=== PATIENT | female | born 1980 | race Caucasian/White ===

== ENCOUNTER 2019-10-26 09:26 | Inpatient (IN) | payer OTHER ==
[~2019-10-26] VITALS: Ht 162.6 cm; Wt 85.2 kg
[2019-10-26] MEDS ORDERED: TRAM50TA4 PO (09:45)
[2019-10-26] MEDS ORDERED: IBUP-2070 PO (09:45)
[2019-10-26 10:07] LABS: BASOPHILS % (AUTO) 0.6 % (0.0-2.0); EOSINOPHILS % (AUTO) 2.4 % (1.0-6.0); HEMATOCRIT 37.4 % (36-46); HEMOGLOBIN 12.4 g/dL (12.0-16.0); LYMPHOCYTES # (AUTO) 2.9 K/uL (1.0-4.8); LYMPHOCYTES % (AUTO) 30.5 % (22.0-44.0); MEAN CORPUSCULAR HEMOGLOBIN 27.8 pg (26.0-34.0); MEAN CORPUSCULAR HGB CONC 33.3 G/dL (31.0-37.0); MEAN CORPUSCULAR VOLUME 84 fL (80-100); MONOCYTES # (AUTO) 0.5 K/uL (0.1-1.0); MONOCYTES % (AUTO) 4.8 % (2.0-9.0); NEUTROPHILS # (AUTO) 5.9 K/uL (1.8-7.7); NEUTROPHILS % (AUTO) 61.7 % (40.0-70.0); PLATELET COUNT (AUTO) 255 K/uL (150-450); RED BLOOD CELL COUNT(AUTO) 4.47 MIL/uL (4.00-5.20); RED CELL DISTRIBUTION WIDTH 14.5 % (11.5-14.5)
[2019-10-26 10:13] LABS: ANION GAP 5 mmol/L (8-16); CALCIUM, TOTAL 9.3 mg/dL (8.8-10.5); CARBON DIOXIDE 32 mmol/L (22-29); CHLORIDE 104 mmol/L (98-107); CREATININE 0.64 mg/dL (0.60-1.30); GLOMERULAR FILTR. RATE CALC > 60 mL/min (>60); GLUCOSE,RANDOM 97 mg/dL (70-110); POTASSIUM 3.8 mmol/L (3.5-5.1); SODIUM SERUM 141 mmol/L (136-145); UREA NITROGEN, BLOOD 10 mg/dL (7-18)
[2019-10-26 10:25] LABS: ALANINE AMINOTRANSFERASE 23 U/L (12-78); ALBUMIN 3.6 g/dL (3.4-5.0); ALKALINE PHOSPHATASE 83 U/L (46-116); ASPARTATE AMINOTRANSFERASE 13 U/L (15-37); BILIRUBIN,TOTAL 0.4 mg/dL (0.1-1.0); HCG,QUANTITATIVE < 1 mIU/mL (0-6); TOTAL PROTEIN, SERUM 7.4 g/dL (6.4-8.2)
[2019-10-26 10:31] VITALS: BP 124/71
[2019-10-26] MEDS ORDERED: INFLUENZA VIRUS VACCINE QVS 2019-20 (3YR+)/PF 60 MCG/0.5 ML SYRINGE IM ONE (14:15)
[2019-10-26 15:20] VITALS: BP 135/89
[2019-10-26] MEDS: IBUPROFEN 600 MG TABLET PO PRN (16:43)
[2019-10-26] MEDS: FLUoxetine HCL 20 MG CAPSULE PO SCH (16:57)
[2019-10-26 17:12] LABS: AMPHET/METH SCREEN,URINE POSITIVE (NEGATIVE); BARBITURATE SCREEN, URINE NEGATIVE (NEGATIVE); BENZODIAZEPINES SCREEN,URINE NEGATIVE (NEGATIVE); CANNABINOID SCREEN,URINE POSITIVE (NEGATIVE); COCAINE SCREEN,URINE NEGATIVE (NEGATIVE); METHADONE SCREEN, URINE NEGATIVE (NEGATIVE); OPIATE SCREEN,URINE NEGATIVE (NEGATIVE)
[2019-10-26 17:14] LABS: PHENCYCLIDINE SCREEN,URINE NEGATIVE (NEGATIVE)
[2019-10-26 22:48] VITALS: BP 123/75
[2019-10-27 00:47] VITALS: BP 132/82
[2019-10-27 04:00] VITALS: BP 119/68
[2019-10-27 07:31] VITALS: BP 121/86
[2019-10-27] MEDS: FLUoxetine HCL 20 MG CAPSULE PO SCH (08:32)
[2019-10-27] MEDS ORDERED: SODIUM CHLORIDE 0.45% 1,000 ML IV SCH (12:24)
[2019-10-27] MEDS ORDERED: MAGNESIUM HYDROXIDE SUSPENSION 30 ML UDCUP PO PRN (12:30)
[2019-10-27] MEDS ORDERED: PROMETHAZINE HCL 25 MG TABLET PO PRN (12:30)
[2019-10-27] MEDS ORDERED: BACLOFEN 10 MG TABLET PO PRN (12:30)
[2019-10-27] MEDS ORDERED: HydrOXYzine PAMOATE 50 MG CAPSULE PO PRN (12:30)
[2019-10-27] MEDS ORDERED: IBUPROFEN 600 MG TABLET PO PRN (12:30)
[2019-10-27] MEDS ORDERED: BISACODYL 10 MG RECTAL RECTAL SUPPOSITORY PR PRN (12:30)
[2019-10-27] MEDS ORDERED: IPRATROPIUM BROMIDE 0.5 MG/2.5 ML NEB SOLUTION NEB PRN (12:30)
[2019-10-27] MEDS ORDERED: LOPERAMIDE HCL 2 MG/15 ML SUSPENSION UDCUP PO PRN (12:30)
[2019-10-27] MEDS ORDERED: ACETAMINOPHEN 325 MG TABLET PO PRN ×2 (12:30)
[2019-10-27] MEDS ORDERED: DICYCLOMINE HCL 10 MG CAPSULE PO PRN (12:30)
[2019-10-27] MEDS ORDERED: ONDANSETRON HCL 4 MG/2 ML VIAL IVP PRN (12:30)
[2019-10-27] MEDS ORDERED: MAG HYDROX/AL HYDROX/SIMETH ES 30 ML SUSPENSION UDCUP PO PRN (12:30)
[2019-10-27] MEDS ORDERED: ALBUTEROL SULFATE 2.5 MG/0.5 ML NEB SOLUTION NEB PRN (12:30)
[2019-10-27] MEDS ORDERED: CloNIDine HCL 0.1 MG TABLET PO PRN (12:30)
[2019-10-27 12:50] VITALS: BP 121/76
[2019-10-27] MEDS: HEPARIN SODIUM,PORCINE 5,000 UNITS/ML VIAL SQ SCH ×2 (15:22→23:26)
[2019-10-27 15:34] VITALS: BP 137/74
[2019-10-27] MEDS: IBUPROFEN 600 MG TABLET PO PRN (18:45)
[2019-10-27] MEDS: ZOLPIDEM TARTRATE 5 MG TABLET PO PRN (20:03)
[2019-10-27] MEDS: DOCUSATE SODIUM 100 MG CAPSULE PO SCH (20:03)
[2019-10-27 20:06] VITALS: BP 132/78
[2019-10-27] MEDS: LORazepam 1 MG TABLET PO PRN (23:27)
[2019-10-28] MEDS: TraZODone HCL 50 MG TABLET PO PRN ×3 (01:21→23:36)
[2019-10-28 06:26] VITALS: BP 132/76
[2019-10-28 07:46] VITALS: BP 110/61
[2019-10-28] MEDS: DOCUSATE SODIUM 100 MG CAPSULE PO SCH ×2 (08:34→20:10)
[2019-10-28] MEDS: FLUoxetine HCL 20 MG CAPSULE PO SCH (08:34)
[2019-10-28] MEDS: HEPARIN SODIUM,PORCINE 5,000 UNITS/ML VIAL SQ SCH ×3 (08:35→23:37)
[2019-10-28] MEDS: IBUPROFEN 600 MG TABLET PO PRN ×2 (08:41→18:22)
[2019-10-28] MEDS ORDERED: FLUO-191 PO (09:44)
[2019-10-28] MEDS: LORazepam 1 MG TABLET PO PRN ×2 (10:17→16:41)
[2019-10-28 13:28] VITALS: BP 110/61
[2019-10-28 15:21] VITALS: BP 117/5
[2019-10-28 20:30] VITALS: BP 124/72
[2019-10-28] MEDS: ZOLPIDEM TARTRATE 5 MG TABLET PO PRN (20:55)
[2019-10-29] MEDS: DOCUSATE SODIUM 100 MG CAPSULE PO SCH ×2 (09:00→19:47)
[2019-10-29 09:19] VITALS: BP 100/44
[2019-10-29] MEDS: HEPARIN SODIUM,PORCINE 5,000 UNITS/ML VIAL SQ SCH ×3 (09:57→23:25)
[2019-10-29] MEDS: FLUoxetine HCL 20 MG CAPSULE PO SCH (09:58)
[2019-10-29] MEDS: IBUPROFEN 600 MG TABLET PO PRN (09:58)
[2019-10-29] MEDS ORDERED: NICOTINE 14 MG/24 HOUR PATCH TD SCH (13:00)
[2019-10-29 14:57] VITALS: BP 135/73
[2019-10-29] MEDS: ZOLPIDEM TARTRATE 5 MG TABLET PO PRN (19:25)
[2019-10-29] MEDS: TraZODone HCL 50 MG TABLET PO PRN (19:26)
[2019-10-29 19:27] VITALS: BP 135/62
[2019-10-29] MEDS: LORazepam 1 MG TABLET PO PRN (21:53)
[2019-10-30] MEDS: IBUPROFEN 600 MG TABLET PO PRN (06:08)
== END 2019-10-30 06:25 | DRG 885 ==
LOC: EMS 09:27 → 6S 09:51
PROVIDERS: ADMIT Hospitalist; ATTEND Hospitalist
DX: F33.2 Major depressive disorder, recurrent severe without psychotic features (principal); F11.23 Opioid dependence with withdrawal; F41.9 Anxiety disorder, unspecified; G89.29 Other chronic pain; M54.9 Dorsalgia, unspecified; F17.210 Nicotine dependence, cigarettes, uncomplicated; F12.90 Cannabis use, unspecified, uncomplicated; Z88.1 Allergy status to other antibiotic agents
CPT/HCPCS: J1644

== ENCOUNTER 2021-11-28 00:55 | Inpatient (IN) | payer OTHER ==
[~2021-11-28] VITALS: Ht 167.6 cm; Wt 91.5 kg
[~2021-11-28 00:55] MED LIST: FLUO-191 PO
[2021-11-28] MEDS ORDERED: VANCOMYCIN HCL 1 GM/D5% WATER 200 ML IV ONE (02:15)
[2021-11-28 02:24] LABS: BASOPHILS % (AUTO) 0.6 % (0.0-2.0); EOSINOPHILS % (AUTO) 3.1 % (1.0-6.0); HEMATOCRIT 30.8 % (36-46); HEMOGLOBIN 9.9 g/dL (12.0-16.0); LYMPHOCYTES # (AUTO) 3.4 K/uL (1.0-4.8); LYMPHOCYTES % (AUTO) 25.4 % (22.0-44.0); MEAN CORPUSCULAR HEMOGLOBIN 26.3 pg (26.0-34.0); MEAN CORPUSCULAR HGB CONC 32.2 G/dL (31.0-37.0); MEAN CORPUSCULAR VOLUME 82 fL (80-100); MONOCYTES # (AUTO) 0.7 K/uL (0.1-1.0); MONOCYTES % (AUTO) 5.3 % (2.0-9.0); NEUTROPHILS # (AUTO) 8.7 K/uL (1.8-7.7); NEUTROPHILS % (AUTO) 65.6 % (40.0-70.0); PLATELET COUNT (AUTO) 411 K/uL (150-450); RED BLOOD CELL COUNT(AUTO) 3.77 MIL/uL (4.00-5.20)
[2021-11-28 02:33] LABS: ANION GAP 6 mmol/L (8-16); CARBON DIOXIDE 32 mmol/L (22-29); CHLORIDE 103 mmol/L (98-107); CREATININE 0.74 mg/dL (0.60-1.30); GLOMERULAR FILTR. RATE CALC > 60 mL/min (>60); GLUCOSE,RANDOM 99 mg/dL (70-110); POTASSIUM 3.5 mmol/L (3.5-5.1); SODIUM SERUM 141 mmol/L (136-145); UREA NITROGEN, BLOOD 8 mg/dL (7-18)
[2021-11-28] MEDS ORDERED: ACETAMINOPHEN 325 MG TABLET PO PRN (02:45)
[2021-11-28] MEDS ORDERED: ONDANSETRON HCL 4 MG/2 ML VIAL IVP PRN ×2 (02:45→03:15)
[2021-11-28 02:51] LABS: COVID AG,FIA SOURCE NASOPHARYNGEAL
[2021-11-28] MEDS: RINGERS SOLUTION,LACTATED 1,000 ML IV SCH ×2 (03:48→16:54)
[2021-11-28 05:39] VITALS: BP 105/51
[2021-11-28] MEDS: ACETAMINOPHEN 325 MG TABLET PO PRN (05:56)
[2021-11-28] MEDS: HEPARIN SODIUM,PORCINE 5,000 UNITS/ML VIAL SQ SCH ×2 (08:33→16:53)
[2021-11-28] MEDS: VANCOMYCIN HCL 1 GM/D5% WATER 200 ML IV SCH ×2 (08:33→16:53)
[2021-11-28 09:07] VITALS: BP 107/53
[2021-11-28] MEDS: CefTRIAXone 1 GM/DEXTROSE 50 ML IV SCH (11:58)
[2021-11-28] MEDS ORDERED: LIDOCAINE/PF 2% 5 ML VIAL IM ONE (12:00)
[2021-11-28] MEDS ORDERED: PROPOFOL 1% 20 ML VIAL IVP ONE (12:00)
[2021-11-28] MEDS ORDERED: ONDANSETRON HCL 4 MG/2 ML VIAL IVP ONE (12:00)
[2021-11-28 15:58] VITALS: BP 118/61
[2021-11-28] MEDS: TraMADol HCL 50 MG TABLET PO PRN (16:53)
[2021-11-28 20:29] VITALS: BP 121/63
[2021-11-28] MEDS ORDERED: IOHEXOL 350 MG/ML 100 ML VIAL ONE (20:41)
[2021-11-29] MEDS: VANCOMYCIN HCL 1 GM/D5% WATER 200 ML IV SCH ×4 (01:00→23:20)
[2021-11-29] MEDS: TraMADol HCL 50 MG TABLET PO PRN ×2 (02:15→11:32)
[2021-11-29 04:30] VITALS: BP 132/62
[2021-11-29 06:43] LABS: BASOPHILS % (AUTO) 0.4 % (0.0-2.0); EOSINOPHILS % (AUTO) 2.5 % (1.0-6.0); HEMOGLOBIN 9.6 g/dL (12.0-16.0); LYMPHOCYTES # (AUTO) 3.4 K/uL (1.0-4.8); MEAN CORPUSCULAR HEMOGLOBIN 27.1 pg (26.0-34.0); MEAN CORPUSCULAR HGB CONC 33.1 G/dL (31.0-37.0); MEAN CORPUSCULAR VOLUME 82 fL (80-100); MONOCYTES # (AUTO) 0.6 K/uL (0.1-1.0); MONOCYTES % (AUTO) 4.8 % (2.0-9.0); NEUTROPHILS # (AUTO) 7.5 K/uL (1.8-7.7); NEUTROPHILS % (AUTO) 63.3 % (40.0-70.0); PLATELET COUNT (AUTO) 400 K/uL (150-450); RED BLOOD CELL COUNT(AUTO) 3.53 MIL/uL (4.00-5.20); RED CELL DISTRIBUTION WIDTH 15.3 % (11.5-14.5)
[2021-11-29 06:55] LABS: ANION GAP 1 mmol/L (8-16); CALCIUM, TOTAL 8.6 mg/dL (8.8-10.5); CARBON DIOXIDE 34 mmol/L (22-29); CHLORIDE 105 mmol/L (98-107); CREATININE 0.62 mg/dL (0.60-1.30); GLOMERULAR FILTR. RATE CALC > 60 mL/min (>60); GLUCOSE,RANDOM 89 mg/dL (70-110); POTASSIUM 5.2 mmol/L (3.5-5.1); SODIUM SERUM 140 mmol/L (136-145); UREA NITROGEN, BLOOD 7 mg/dL (7-18); VANCOMYCIN,RANDOM 21.4 mcg/mL (25.0-50.0)
[2021-11-29 08:00] VITALS: BP 120/69
[2021-11-29] MEDS: HEPARIN SODIUM,PORCINE 5,000 UNITS/ML VIAL SQ SCH ×4 (08:14→23:21)
[2021-11-29] MEDS: RINGERS SOLUTION,LACTATED 1,000 ML IV SCH (08:15)
[2021-11-29] MEDS: CefTRIAXone 1 GM/DEXTROSE 50 ML IV SCH (11:31)
[2021-11-29 14:10] LABS: AMPHET/METH SCREEN,URINE POSITIVE (NEGATIVE); BARBITURATE SCREEN, URINE NEGATIVE (NEGATIVE); BENZODIAZEPINES SCREEN,URINE NEGATIVE (NEGATIVE); CANNABINOID SCREEN,URINE NEGATIVE (NEGATIVE); COCAINE SCREEN,URINE NEGATIVE (NEGATIVE); METHADONE SCREEN, URINE NEGATIVE (NEGATIVE); OPIATE SCREEN,URINE NEGATIVE (NEGATIVE)
[2021-11-29 14:11] LABS: PHENCYCLIDINE SCREEN,URINE NEGATIVE (NEGATIVE)
[2021-11-29] MEDS: ACETAMINOPHEN 325 MG TABLET PO PRN (15:44)
[2021-11-29 19:40] VITALS: BP 113/54
[2021-11-30 05:25] VITALS: BP 99/62
[2021-11-30 06:44] LABS: ANION GAP -1 mmol/L (8-16); CALCIUM, TOTAL 8.7 mg/dL (8.8-10.5); CARBON DIOXIDE 37 mmol/L (22-29); CHLORIDE 103 mmol/L (98-107); CREATININE 0.63 mg/dL (0.60-1.30); GLOMERULAR FILTR. RATE CALC > 60 mL/min (>60); GLUCOSE,RANDOM 87 mg/dL (70-110); POTASSIUM 4.3 mmol/L (3.5-5.1); SODIUM SERUM 139 mmol/L (136-145); UREA NITROGEN, BLOOD 10 mg/dL (7-18)
[2021-11-30] MEDS: HEPARIN SODIUM,PORCINE 5,000 UNITS/ML VIAL SQ SCH (07:41)
[2021-11-30] MEDS: VANCOMYCIN HCL 1 GM/D5% WATER 200 ML IV SCH ×2 (07:42→16:41)
[2021-11-30 08:23] VITALS: BP 122/66
[2021-11-30] MEDS: CefTRIAXone 1 GM/DEXTROSE 50 ML IV SCH (09:31)
[2021-11-30] MEDS: TraMADol HCL 50 MG TABLET PO PRN (09:31)
[2021-11-30] MEDS ORDERED: RINGERS SOLUTION,LACTATED 1,000 ML IV ONE (10:24)
[2021-11-30] MEDS ORDERED: HYDROmorphone 2 MG/ML VIAL IVP PRN (11:45)
[2021-11-30] MEDS ORDERED: FentaNYL CITRATE PF 100 MCG/2 ML VIAL IVP PRN (11:45)
[2021-11-30] MEDS ORDERED: MIDAZOLAM HCL 2 MG/2 ML VIAL IVP ONE (12:00)
[2021-11-30] MEDS ORDERED: FentaNYL CITRATE PF 100 MCG/2 ML VIAL IVP ONE (12:00)
[2021-11-30 16:59] VITALS: BP 116/82
[2021-11-30] MEDS: HYDROCODONE/ACETAMINOPHEN 5-325 MG TABLET PO PRN (17:25)
[2021-11-30 20:00] VITALS: BP 116/61
[2021-11-30] MEDS: OXYGEN THERAPY IH SCH (20:00)
[2021-11-30] MEDS: FAMOTIDINE 20 MG TABLET PO SCH ×2 (21:00→21:48)
[2021-11-30] MEDS: HYDROmorphone 2 MG/ML VIAL IVP PRN (22:04)
[2021-12-01] MEDS ORDERED: SODIUM CHLORIDE 0.9% 500 ML IV ONE (00:24)
[2021-12-01] MEDS: VANCOMYCIN HCL 1 GM/D5% WATER 200 ML IV SCH ×3 (00:25→15:46)
[2021-12-01] MEDS: HYDROmorphone 2 MG/ML VIAL IVP PRN ×3 (03:26→21:46)
[2021-12-01 04:55] VITALS: BP 126/59
[2021-12-01] MEDS: MORPHINE SULFATE 4 MG/ML SYRINGE IVP PRN ×2 (05:10→15:47)
[2021-12-01 07:29] LABS: ANION GAP 4 mmol/L (8-16); CALCIUM, TOTAL 8.8 mg/dL (8.8-10.5); CARBON DIOXIDE 34 mmol/L (22-29); CHLORIDE 102 mmol/L (98-107); CREATININE 0.64 mg/dL (0.60-1.30); GLOMERULAR FILTR. RATE CALC > 60 mL/min (>60); GLUCOSE,RANDOM 94 mg/dL (70-110); POTASSIUM 4.4 mmol/L (3.5-5.1); SODIUM SERUM 140 mmol/L (136-145); UREA NITROGEN, BLOOD 10 mg/dL (7-18); VANCOMYCIN,RANDOM 20.9 mcg/mL (25.0-50.0)
[2021-12-01] MEDS: OXYGEN THERAPY IH SCH ×2 (08:00→20:00)
[2021-12-01 08:11] VITALS: BP 112/65
[2021-12-01] MEDS: FAMOTIDINE 20 MG TABLET PO SCH ×2 (08:13→21:29)
[2021-12-01] MEDS: CefTRIAXone 1 GM/DEXTROSE 50 ML IV SCH (10:50)
[2021-12-01] MEDS: HYDROCODONE/ACETAMINOPHEN 5-325 MG TABLET PO PRN (14:20)
[2021-12-01 16:00] VITALS: BP 120/56
[2021-12-01 20:42] VITALS: BP 103/66
[2021-12-02] MEDS: VANCOMYCIN HCL 1 GM/D5% WATER 200 ML IV SCH ×3 (00:19→16:21)
[2021-12-02 00:48] VITALS: BP 101/58
[2021-12-02 05:35] VITALS: BP 115/61
[2021-12-02] MEDS: HYDROmorphone 2 MG/ML VIAL IVP PRN ×3 (05:44→17:58)
[2021-12-02 06:55] LABS: ANION GAP 3 mmol/L (8-16); CALCIUM, TOTAL 9.1 mg/dL (8.8-10.5); CARBON DIOXIDE 36 mmol/L (22-29); CHLORIDE 101 mmol/L (98-107); CREATININE 0.61 mg/dL (0.60-1.30); GLOMERULAR FILTR. RATE CALC > 60 mL/min (>60); GLUCOSE,RANDOM 99 mg/dL (70-110); POTASSIUM 4.4 mmol/L (3.5-5.1); SODIUM SERUM 140 mmol/L (136-145); UREA NITROGEN, BLOOD 11 mg/dL (7-18)
[2021-12-02] MEDS: OXYGEN THERAPY IH SCH ×2 (08:00→20:00)
[2021-12-02 08:06] VITALS: BP 115/55
[2021-12-02] MEDS: FAMOTIDINE 20 MG TABLET PO SCH ×2 (08:07→21:04)
[2021-12-02] MEDS: MORPHINE SULFATE 4 MG/ML SYRINGE IVP PRN ×2 (14:55→20:56)
[2021-12-02] MEDS ORDERED: SODIUM CHLORIDE 0.9% IRRIG BTL 1,000 ML IRRIG ONE (15:03)
[2021-12-02 16:07] VITALS: BP 114/67
[2021-12-02 19:54] VITALS: BP 129/61
[2021-12-03] MEDS ORDERED: SODIUM CHLORIDE 0.9% 500 ML IV ONE (01:11)
[2021-12-03] MEDS: VANCOMYCIN HCL 1 GM/D5% WATER 200 ML IV SCH ×3 (01:22→16:37)
[2021-12-03 04:13] VITALS: BP 114/55
[2021-12-03 06:59] LABS: BASOPHILS % (AUTO) 0.4 % (0.0-2.0); EOSINOPHILS % (AUTO) 3.9 % (1.0-6.0); HEMATOCRIT 31.3 % (36-46); HEMOGLOBIN 10.2 g/dL (12.0-16.0); LYMPHOCYTES # (AUTO) 2.7 K/uL (1.0-4.8); LYMPHOCYTES % (AUTO) 33.9 % (22.0-44.0); MEAN CORPUSCULAR HEMOGLOBIN 26.9 pg (26.0-34.0); MEAN CORPUSCULAR HGB CONC 32.6 G/dL (31.0-37.0); MEAN CORPUSCULAR VOLUME 83 fL (80-100); MONOCYTES # (AUTO) 0.4 K/uL (0.1-1.0); MONOCYTES % (AUTO) 5.5 % (2.0-9.0); NEUTROPHILS # (AUTO) 4.6 K/uL (1.8-7.7); NEUTROPHILS % (AUTO) 56.3 % (40.0-70.0); PLATELET COUNT (AUTO) 381 K/uL (150-450); RED BLOOD CELL COUNT(AUTO) 3.79 MIL/uL (4.00-5.20); RED CELL DISTRIBUTION WIDTH 15.2 % (11.5-14.5)
[2021-12-03 07:08] LABS: ANION GAP 2 mmol/L (8-16); CALCIUM, TOTAL 9.2 mg/dL (8.8-10.5); CARBON DIOXIDE 38 mmol/L (22-29); CHLORIDE 101 mmol/L (98-107); CREATININE 0.66 mg/dL (0.60-1.30); GLOMERULAR FILTR. RATE CALC > 60 mL/min (>60); GLUCOSE,RANDOM 89 mg/dL (70-110); POTASSIUM 4.2 mmol/L (3.5-5.1); SODIUM SERUM 141 mmol/L (136-145); UREA NITROGEN, BLOOD 14 mg/dL (7-18)
[2021-12-03 07:52] VITALS: BP 124/53
[2021-12-03] MEDS: OXYGEN THERAPY IH SCH ×2 (08:00→20:00)
[2021-12-03] MEDS: FAMOTIDINE 20 MG TABLET PO SCH ×2 (08:32→22:08)
[2021-12-03] MEDS: HYDROmorphone 2 MG/ML VIAL IVP PRN ×5 (08:43→23:05)
[2021-12-03 15:30] VITALS: BP 120/67
[2021-12-03 19:59] VITALS: BP 121/67
[2021-12-04] MEDS: VANCOMYCIN HCL 1 GM/D5% WATER 200 ML IV SCH ×4 (00:21→23:27)
[2021-12-04] MEDS: HYDROmorphone 2 MG/ML VIAL IVP PRN ×6 (04:07→23:27)
[2021-12-04 04:56] VITALS: BP 105/56
[2021-12-04 06:42] LABS: ANION GAP 3 mmol/L (8-16); CALCIUM, TOTAL 9.1 mg/dL (8.8-10.5); CARBON DIOXIDE 35 mmol/L (22-29); CHLORIDE 99 mmol/L (98-107); CREATININE 0.64 mg/dL (0.60-1.30); GLOMERULAR FILTR. RATE CALC > 60 mL/min (>60); GLUCOSE,RANDOM 102 mg/dL (70-110); POTASSIUM 4.2 mmol/L (3.5-5.1); SODIUM SERUM 137 mmol/L (136-145); UREA NITROGEN, BLOOD 16 mg/dL (7-18); VANCOMYCIN,RANDOM 22.6 mcg/mL (25.0-50.0)
[2021-12-04] MEDS: OXYGEN THERAPY IH SCH ×2 (08:00→20:12)
[2021-12-04] MEDS: FAMOTIDINE 20 MG TABLET PO SCH ×2 (08:14→20:09)
[2021-12-04 08:52] VITALS: BP 122/70
[2021-12-04 16:19] VITALS: BP 119/56
[2021-12-04] MEDS: HYDROCODONE/ACETAMINOPHEN 5-325 MG TABLET PO PRN (18:02)
[2021-12-04 19:35] VITALS: BP 106/60
[2021-12-05] MEDS: HYDROmorphone 2 MG/ML VIAL IVP PRN ×4 (03:23→19:55)
[2021-12-05 05:03] VITALS: BP 106/51
[2021-12-05 06:28] LABS: ANION GAP 3 mmol/L (8-16); CARBON DIOXIDE 35 mmol/L (22-29); CHLORIDE 100 mmol/L (98-107); GLOMERULAR FILTR. RATE CALC > 60 mL/min (>60); GLUCOSE,RANDOM 94 mg/dL (70-110); POTASSIUM 4.4 mmol/L (3.5-5.1); SODIUM SERUM 138 mmol/L (136-145); UREA NITROGEN, BLOOD 17 mg/dL (7-18)
[2021-12-05 07:36] VITALS: BP 140/53
[2021-12-05] MEDS: OXYGEN THERAPY IH SCH ×2 (08:00→20:00)
[2021-12-05] MEDS: VANCOMYCIN HCL 1 GM/D5% WATER 200 ML IV SCH ×2 (08:59→16:10)
[2021-12-05] MEDS: FAMOTIDINE 20 MG TABLET PO SCH ×2 (09:00→19:49)
[2021-12-05] MEDS: HYDROCODONE/ACETAMINOPHEN 5-325 MG TABLET PO PRN (12:41)
[2021-12-05 15:30] VITALS: BP 120/82
[2021-12-05 19:40] VITALS: BP 120/55
[2021-12-06] MEDS: VANCOMYCIN HCL 1 GM/D5% WATER 200 ML IV SCH ×3 (00:42→16:43)
[2021-12-06] MEDS: HYDROmorphone 2 MG/ML VIAL IVP PRN ×6 (01:11→21:00)
[2021-12-06 05:17] VITALS: BP 119/73
[2021-12-06 07:12] LABS: ANION GAP 3 mmol/L (8-16); CALCIUM, TOTAL 9.2 mg/dL (8.8-10.5); CARBON DIOXIDE 33 mmol/L (22-29); CHLORIDE 101 mmol/L (98-107); CREATININE 0.58 mg/dL (0.60-1.30); GLOMERULAR FILTR. RATE CALC > 60 mL/min (>60); GLUCOSE,RANDOM 91 mg/dL (70-110); POTASSIUM 4.9 mmol/L (3.5-5.1); SODIUM SERUM 137 mmol/L (136-145); UREA NITROGEN, BLOOD 13 mg/dL (7-18)
[2021-12-06 07:35] VITALS: BP 108/55
[2021-12-06] MEDS: OXYGEN THERAPY IH SCH ×2 (08:00→20:00)
[2021-12-06] MEDS: FAMOTIDINE 20 MG TABLET PO SCH ×2 (08:27→20:59)
[2021-12-06 19:55] VITALS: BP 111/53
[2021-12-07] MEDS: VANCOMYCIN HCL 1 GM/D5% WATER 200 ML IV SCH (00:01)
[2021-12-07] MEDS: HYDROmorphone 2 MG/ML VIAL IVP PRN ×6 (00:02→20:52)
[2021-12-07 04:53] VITALS: BP 143/79
[2021-12-07 07:06] LABS: ANION GAP 10 mmol/L (8-16); CALCIUM, TOTAL 9.2 mg/dL (8.8-10.5); CARBON DIOXIDE 35 mmol/L (22-29); CHLORIDE 98 mmol/L (98-107); CREATININE 0.62 mg/dL (0.60-1.30); GLOMERULAR FILTR. RATE CALC > 60 mL/min (>60); GLUCOSE,RANDOM 114 mg/dL (70-110); POTASSIUM 3.7 mmol/L (3.5-5.1); SODIUM SERUM 143 mmol/L (136-145); UREA NITROGEN, BLOOD 14 mg/dL (7-18); VANCOMYCIN,RANDOM 25.2 mcg/mL (25.0-50.0)
[2021-12-07] MEDS: OXYGEN THERAPY IH SCH ×2 (08:00→21:12)
[2021-12-07 08:05] VITALS: BP 136/77
[2021-12-07] MEDS: FAMOTIDINE 20 MG TABLET PO SCH ×2 (08:32→20:51)
[2021-12-07 10:02] VITALS: BP 138/82
[2021-12-07] MEDS: CeFAZolin 1 GM/DEXTROSE 50 ML IV SCH ×2 (14:19→22:22)
[2021-12-07] MEDS ORDERED: VANCOMYCIN HCL 1.25 GM in DEXTROSE 5%-WATER 250 ML IV SCH (20:00)
[2021-12-07 20:16] VITALS: BP 118/55
[2021-12-08] MEDS: HYDROmorphone 2 MG/ML VIAL IVP PRN ×7 (00:13→21:26)
[2021-12-08 06:24] LABS: ANION GAP -1 mmol/L (8-16); CALCIUM, TOTAL 9.1 mg/dL (8.8-10.5); CARBON DIOXIDE 35 mmol/L (22-29); CHLORIDE 101 mmol/L (98-107); CREATININE 0.58 mg/dL (0.60-1.30); GLUCOSE,RANDOM 89 mg/dL (70-110); POTASSIUM 4.4 mmol/L (3.5-5.1); SODIUM SERUM 135 mmol/L (136-145); UREA NITROGEN, BLOOD 16 mg/dL (7-18)
[2021-12-08] MEDS: CeFAZolin 1 GM/DEXTROSE 50 ML IV SCH ×3 (06:31→21:26)
[2021-12-08 06:57] LABS: GLOMERULAR FILTR. RATE CALC > 60 mL/min (>60)
[2021-12-08] MEDS: OXYGEN THERAPY IH SCH ×2 (08:00→20:01)
[2021-12-08 08:17] VITALS: BP 124/57
[2021-12-08] MEDS: FAMOTIDINE 20 MG TABLET PO SCH ×2 (08:40→19:59)
[2021-12-08 18:45] VITALS: BP 107/70
[2021-12-08 21:10] VITALS: BP 113/59
[2021-12-09] MEDS: HYDROmorphone 2 MG/ML VIAL IVP PRN ×4 (01:09→12:23)
[2021-12-09 05:20] VITALS: BP 119/56
[2021-12-09] MEDS: CeFAZolin 1 GM/DEXTROSE 50 ML IV SCH ×2 (05:42→13:47)
[2021-12-09 07:07] LABS: ANION GAP 4 mmol/L (8-16); CALCIUM, TOTAL 8.8 mg/dL (8.8-10.5); CARBON DIOXIDE 34 mmol/L (22-29); CHLORIDE 100 mmol/L (98-107); CREATININE 0.67 mg/dL (0.60-1.30); GLOMERULAR FILTR. RATE CALC > 60 mL/min (>60); GLUCOSE,RANDOM 94 mg/dL (70-110); POTASSIUM 4.4 mmol/L (3.5-5.1); SODIUM SERUM 138 mmol/L (136-145); UREA NITROGEN, BLOOD 15 mg/dL (7-18); VANCOMYCIN,RANDOM 1.3 mcg/mL (25.0-50.0)
[2021-12-09] MEDS: OXYGEN THERAPY IH SCH ×2 (08:00→20:59)
[2021-12-09 08:12] VITALS: BP 97/59
[2021-12-09] MEDS: FAMOTIDINE 20 MG TABLET PO SCH ×2 (08:37→20:58)
[2021-12-09] MEDS ORDERED: HYDROCODONE/ACETAMINOPHEN 5-325 MG TABLET PO PRN (15:15)
[2021-12-09] MEDS: HYDROCODONE/ACETAMINOPHEN 5-325 MG TABLET PO PRN (15:23)
[2021-12-09 15:26] VITALS: BP 95/53
[2021-12-09 19:57] VITALS: BP 119/57
[2021-12-09] MEDS: SULFAMETHOX/TRIMETH DS 800-160 MG/TABLET PO SCH (20:58)
[2021-12-09] MEDS ORDERED: ZOLPIDEM TARTRATE 5 MG TABLET PO PRN (23:45)
[2021-12-10] MEDS: HYDROCODONE/ACETAMINOPHEN 5-325 MG TABLET PO PRN ×2 (05:55→12:03)
[2021-12-10] MEDS: OXYGEN THERAPY IH SCH (08:00)
[2021-12-10 08:09] VITALS: BP 94/57
[2021-12-10] MEDS: FAMOTIDINE 20 MG TABLET PO SCH (08:47)
[2021-12-10] MEDS: SULFAMETHOX/TRIMETH DS 800-160 MG/TABLET PO SCH (08:47)
[2021-12-10 15:51] VITALS: BP 111/68
== END 2021-12-10 17:00 | DRG 571 ==
LOC: EMS 00:56 → 6S 04:16
PROVIDERS: ADMIT Internal Medicine; ATTEND Internal Medicine
PROC: 0JBF0ZZ Excision of Left Upper Arm Subcutaneous Tissue and Fascia, Open Approach (ICD-10-PCS; principal; 2021-11-30 11:43)
DX: L03.114 Cellulitis of left upper limb (principal); R65.10 Systemic inflammatory response syndrome (SIRS) of non-infectious origin without acute organ dysfunction; F17.200 Nicotine dependence, unspecified, uncomplicated; D64.9 Anemia, unspecified; E66.9 Obesity, unspecified; L02.414 Cutaneous abscess of left upper limb; Z20.822 Contact with and (suspected) exposure to COVID-19; G89.29 Other chronic pain; M54.9 Dorsalgia, unspecified; Z79.899 Other long term (current) drug therapy; Z68.32 Body mass index [BMI] 32.0-32.9, adult
CPT/HCPCS: 36245; 36569; 73201; 76937; 80048; 80202; 80307; 82271; 83540; 83550; 83735; 84703; 85025; 85045; 87070; 87081; 87205; 88304; 99285; J0690; J0696; J1170; J1644; J2250; J2270; J2405; J2704; J3010; J3370; J3490; J7040; J7060; J7120; Q9967

== ENCOUNTER 2025-06-25 19:29 | Inpatient (IN) | payer OTHER ==
[~2025-06-25] VITALS: Ht 165.1 cm; Wt 124.2 kg
[~2025-06-25 19:29] MED LIST changes: +FLUO-177 PO; -FLUO-191 PO
[2025-06-25 20:00] LABS: GLUCOMETER DEV NAME(LOC) ERT.7; GLUCOSE,POINT OF CARE 106 MG/DL (70-110)
[2025-06-25 20:55] LABS: PLATELET COUNT (AUTO) 219 K/uL (150-450); RED BLOOD CELL COUNT(AUTO) 4.51 MIL/uL (4.00-5.20); RED CELL DISTRIBUTION WIDTH 13.9 % (11.5-14.5); WHITE BLOOD COUNT (AUTO) 8.0 K/uL (4.5-11.0)
[2025-06-25 21:07] LABS: CALCIUM, TOTAL 8.6 mg/dL (8.8-10.5); CREATININE 0.44 mg/dL (0.60-1.30); GLOMERULAR FILTR. RATE CALC > 60 mL/min (>60); GLUCOSE,RANDOM 102 mg/dL (70-110); UREA NITROGEN, BLOOD 10 mg/dL (7-18)
[2025-06-25 21:09] LABS: SODIUM SERUM 119 mmol/L (136-145)
[2025-06-25 21:13] LABS: ALCOHOL, BLOOD (SERUM) < 3 mg/dL (0-10)
[2025-06-25 21:17] LABS: LACTIC ACID 0.7 mmol/L (0.4-2.0)
[2025-06-25 21:20] LABS: APPEARANCE,URINE CLEAR (CLEAR); GLUCOSE, URINE (UA) NEGATIVE (NEGATIVE); LEUKOCYTE ESTERASE ,URINE NEGATIVE (NEGATIVE); NITRATE,URINE NEGATIVE (NEGATIVE); OCCULT BLOOD,URINE NEGATIVE (NEGATIVE); PH,URINE DRUG SCREEN 6.5 (5.0-8.0); SPECIFIC GRAVITIY, URINE 1.028 (1.003-1.030)
[2025-06-25 21:28] LABS: SQUAMOUS EPITHELIAL CELL,UR Few /LPF (None Seen)
[2025-06-25 21:35] LABS: ALCOHOL, URINE DRUG SCREEN NEGATIVE (NEGATIVE); AMPHET/METH SCREEN,URINE NEGATIVE (NEGATIVE); BARBITURATE SCREEN, URINE NEGATIVE (NEGATIVE); CANNABINOID SCREEN,URINE NEGATIVE (NEGATIVE); COCAINE SCREEN,URINE NEGATIVE (NEGATIVE); METHADONE SCREEN, URINE NEGATIVE (NEGATIVE)
[2025-06-25 21:50] LABS: TROPONIN I-HIGH SENSITIVITY Less Than 4 ng/L (<51)
[2025-06-25 22:28] LABS: SODIUM SERUM 119.0 mmol/L (136-145)
[2025-06-25] MEDS: SODIUM CHLORIDE 3% 500 ML IV ONE (22:30)
[2025-06-26] MEDS ORDERED: ONDANSETRON HCL 4 MG/2 ML VIAL IVP PRN (01:00)
[2025-06-26] MEDS ORDERED: LEVE-71 PO (02:02)
[2025-06-26] MEDS ORDERED: OXCA300T70 PO (02:02)
[2025-06-26 06:21] LABS: CALCIUM, TOTAL 8.5 mg/dL (8.8-10.5); CREATININE 0.43 mg/dL (0.60-1.30); GLOMERULAR FILTR. RATE CALC > 60 mL/min (>60); GLUCOSE,RANDOM 92 mg/dL (70-110); UREA NITROGEN, BLOOD 11 mg/dL (7-18)
[2025-06-26 06:26] LABS: SODIUM SERUM 121 mmol/L (136-145)
[2025-06-26] MEDS: ACETAMINOPHEN 325 MG TABLET PO PRN (07:44)
[2025-06-26] MEDS: DOCUSATE SODIUM 100 MG CAPSULE PO SCH (08:29)
[2025-06-26] MEDS: HEPARIN SODIUM,PORCINE 5,000 UNITS/ML VIAL SQ SCH (08:44)
[2025-06-26 12:00] VITALS: BP 115/53; PULSE 63; RESP 15; TEMP 98.6; O2SAT 100
[2025-06-26 13:42] LABS: CALCIUM, TOTAL 7.9 mg/dL (8.8-10.5); CREATININE 0.47 mg/dL (0.60-1.30); GLOMERULAR FILTR. RATE CALC > 60 mL/min (>60); GLUCOSE,RANDOM 97 mg/dL (70-110); UREA NITROGEN, BLOOD 10 mg/dL (7-18)
[2025-06-26 13:43] LABS: SODIUM SERUM 124 mmol/L (136-145)
[2025-06-26 14:00] VITALS: BP 115/53; PULSE 63; RESP 16; TEMP 98.5; O2SAT 100
[2025-06-26 16:00] VITALS: BP 127/74; PULSE 61; RESP 12; TEMP 98.6; O2SAT 100
[2025-06-26 18:06] VITALS: BP 138/77; PULSE 70; RESP 13; TEMP 98.4; O2SAT 100
[2025-06-26] MEDS: ACETAMINOPHEN 500 MG TABLET PO PRN (18:11)
[2025-06-26] MEDS: BUPRENORPHINE HCL/NALOXONE HCL 8-2 MG SUBLINGUAL TABLET SL SCH (18:59)
[2025-06-26 19:41] LABS: CALCIUM, TOTAL 8.0 mg/dL (8.8-10.5); CREATININE 0.51 mg/dL (0.60-1.30); GLOMERULAR FILTR. RATE CALC > 60 mL/min (>60); GLUCOSE,RANDOM 101 mg/dL (70-110); SODIUM SERUM 125 mmol/L (136-145); UREA NITROGEN, BLOOD 11 mg/dL (7-18)
[2025-06-26 20:00] VITALS: BP 139/84; PULSE 63; RESP 12; TEMP 98.2; O2SAT 97
[2025-06-26] MEDS: CHLORHEXIDINE GLUCONATE 2% TOWELETTE [2'S/6'S] TP SCH (21:10)
[2025-06-26] MEDS: DENTURE ADHESIVE 68 GM CREAM DT PRN (22:50)
[2025-06-27] VITALS: BP 105/53; PULSE 59; RESP 16; TEMP 98.8; O2SAT 95
[2025-06-27 04:00] VITALS: BP 101/55; PULSE 54; RESP 11; TEMP 98.6; O2SAT 97
[2025-06-27 06:20] LABS: PLATELET COUNT (AUTO) 178 K/uL (150-450); RED BLOOD CELL COUNT(AUTO) 4.03 MIL/uL (4.00-5.20); RED CELL DISTRIBUTION WIDTH 14.2 % (11.5-14.5); WHITE BLOOD COUNT (AUTO) 4.5 K/uL (4.5-11.0)
[2025-06-27 06:32] LABS: CALCIUM, TOTAL 7.9 mg/dL (8.8-10.5); CREATININE 0.51 mg/dL (0.60-1.30); GLOMERULAR FILTR. RATE CALC > 60 mL/min (>60); GLUCOSE,RANDOM 90 mg/dL (70-110); SODIUM SERUM 127 mmol/L (136-145); UREA NITROGEN, BLOOD 11 mg/dL (7-18)
[2025-06-27] MEDS ORDERED: SODIUM CHLORIDE 0.9% 500 ML IV ONE (07:58)
[2025-06-27 08:00] VITALS: PULSE 58
[2025-06-27] MEDS: SODIUM CHLORIDE 1 GM TABLET PO SCH (12:10)
[2025-06-27] MEDS: MAGNESIUM OXIDE 400 MG TABLET PO ONE (12:10)
[2025-06-27 12:31] VITALS: BP 135/80; PULSE 62; RESP 18; TEMP 98; O2SAT 98
[2025-06-27 16:29] VITALS: BP 155/84; PULSE 63; RESP 18; TEMP 98.8; O2SAT 97
[2025-06-27 20:00] VITALS: BP 123/67; PULSE 67; RESP 18; TEMP 98.4; O2SAT 98
[2025-06-28] VITALS: BP 104/64; PULSE 62; RESP 18; TEMP 98.4; O2SAT 99
[2025-06-28 06:31] VITALS: BP 124/72; PULSE 60; RESP 20; TEMP 97.9; O2SAT 100
[2025-06-28 07:36] VITALS: BP 130/82; PULSE 57; RESP 18; TEMP 98.8; O2SAT 99
[2025-06-28 12:57] LABS: CALCIUM, TOTAL 8.7 mg/dL (8.8-10.5); CREATININE 0.44 mg/dL (0.60-1.30); GLOMERULAR FILTR. RATE CALC > 60 mL/min (>60); GLUCOSE,RANDOM 94 mg/dL (70-110); SODIUM SERUM 133 mmol/L (136-145); UREA NITROGEN, BLOOD 9 mg/dL (7-18)
[2025-06-28 15:56] VITALS: BP 124/68; PULSE 60; RESP 18; TEMP 98.7; O2SAT 98
[2025-06-28 19:37] VITALS: BP 145/85; PULSE 71; RESP 18; TEMP 98.4; O2SAT 98
[2025-06-29 00:22] VITALS: BP 132/59; PULSE 75; RESP 18; TEMP 98.3; O2SAT 96
[2025-06-29 04:26] VITALS: BP 119/73; PULSE 57; RESP 18; TEMP 97.7; O2SAT 97
[2025-06-29 08:23] VITALS: BP 132/65; PULSE 63; RESP 18; TEMP 97.5; O2SAT 98
[2025-06-29 08:32] LABS: CALCIUM, TOTAL 8.7 mg/dL (8.8-10.5); CREATININE 0.41 mg/dL (0.60-1.30); GLOMERULAR FILTR. RATE CALC > 60 mL/min (>60); GLUCOSE,RANDOM 85 mg/dL (70-110); SODIUM SERUM 132 mmol/L (136-145); UREA NITROGEN, BLOOD 10 mg/dL (7-18)
[2025-06-29] MEDS: COSYNTROPIN 0.25 MG VIAL IM ONE (08:54)
[2025-06-29 08:58] LABS: PLATELET COUNT (AUTO) 203 K/uL (150-450); RED BLOOD CELL COUNT(AUTO) 4.29 MIL/uL (4.00-5.20); RED CELL DISTRIBUTION WIDTH 14.7 % (11.5-14.5); WHITE BLOOD COUNT (AUTO) 5.2 K/uL (4.5-11.0)
[2025-06-29] MEDS ORDERED: SODI100067 PO (11:24)
[2025-07-04 13:08] LABS: CORTISOL STIMULATED,ACTH 25.3 ug/dL (Not Estab.)
== END 2025-06-29 14:32 | disposition home or self-care (01) | DRG 641 ==
LOC: EMS 19:29 → EDH 06-26 00:47 → ICU 06-26 11:35 → 5N 06-27 09:45
PROVIDERS: ADMIT Internal Medicine; ATTEND Internal Medicine
DX: E87.1 Hypo-osmolality and hyponatremia (principal); Z68.42 Body mass index [BMI] 45.0-49.9, adult; G40.909 Epilepsy, unspecified, not intractable, without status epilepticus; E66.01 Morbid (severe) obesity due to excess calories; M54.9 Dorsalgia, unspecified; F15.10 Other stimulant abuse, uncomplicated; F19.10 Other psychoactive substance abuse, uncomplicated; G89.29 Other chronic pain; Z87.891 Personal history of nicotine dependence
CPT/HCPCS: 71045; 80048; 80307; 81001; 82533; 82962; 83605; 83690; 83735; 83930; 83935; 84132; 84133; 84295; 84300; 84439; 84443; 84484; 84550; 84703; 85025; 87081; 93005; 99291; G0480; J0834; J1644; J7030; J7040; 36415-L1; 36415-TC

== ENCOUNTER 2025-06-30 21:17 | Emergency (ER) | payer OTHER ==
[~2025-06-30] VITALS: Ht 165.1 cm; Wt 122.7 kg
[~2025-06-30 21:17] MED LIST changes: -FLUO-177 PO; +LEVE-71 PO; +OXCA300T70 PO; +SODI100067 PO
[2025-06-30 22:07] LABS: APPEARANCE,URINE CLEAR (CLEAR); GLUCOSE, URINE (UA) NEGATIVE (NEGATIVE); LEUKOCYTE ESTERASE ,URINE TRACE (NEGATIVE); NITRATE,URINE NEGATIVE (NEGATIVE); OCCULT BLOOD,URINE NEGATIVE (NEGATIVE); SPECIFIC GRAVITIY, URINE 1.030 (1.003-1.030)
[2025-06-30 22:22] LABS: PLATELET COUNT (AUTO) 213 K/uL (150-450); RED BLOOD CELL COUNT(AUTO) 4.20 MIL/uL (4.00-5.20); RED CELL DISTRIBUTION WIDTH 14.2 % (11.5-14.5); WHITE BLOOD COUNT (AUTO) 4.9 K/uL (4.5-11.0)
[2025-06-30 22:29] LABS: SQUAMOUS EPITHELIAL CELL,UR Few /LPF (None Seen)
[2025-06-30 22:35] LABS: LACTIC ACID 1.0 mmol/L (0.4-2.0)
[2025-06-30 22:38] LABS: CALCIUM, TOTAL 8.6 mg/dL (8.8-10.5); CREATININE 0.49 mg/dL (0.60-1.30); GLOMERULAR FILTR. RATE CALC > 60 mL/min (>60); GLUCOSE,RANDOM 118 mg/dL (70-110); SODIUM SERUM 129 mmol/L (136-145); UREA NITROGEN, BLOOD 12 mg/dL (7-18)
[2025-06-30 23:50] VITALS: TEMP 97.905272
[2025-07-01 01:15] VITALS: BP 135/73; PULSE 70; RESP 16; O2SAT 99
[2025-07-01] MEDS: SODIUM CHLORIDE 1 GM TABLET PO ONE (01:37)
[2025-07-01] MEDS: DOXYCYCLINE HYCLATE 100 MG TABLET PO ONE (01:37)
[2025-07-01] MEDS ORDERED: DOXY-354 PO (01:37)
== END 2025-07-01 02:30 | disposition home or self-care (01) ==
LOC: EMS 21:42
DX: L02.412 Cutaneous abscess of left axilla (principal); L03.112 Cellulitis of left axilla; E87.1 Hypo-osmolality and hyponatremia; F12.90 Cannabis use, unspecified, uncomplicated; F15.90 Other stimulant use, unspecified, uncomplicated; F17.210 Nicotine dependence, cigarettes, uncomplicated; Z86.19 Personal history of other infectious and parasitic diseases; Z79.899 Other long term (current) drug therapy
CPT/HCPCS: 80048; 81001; 83605; 85025; 99283

== ENCOUNTER 2025-07-12 14:54 | Emergency (ER) | payer OTHER ==
[~2025-07-12] VITALS: Ht 165.1 cm; Wt 122.7 kg
[~2025-07-12 14:54] MED LIST changes: +DOXY-354 PO
[2025-07-12 14:57] VITALS: BP 138/92; PULSE 99; RESP 18; TEMP 98.2; O2SAT 93
== END 2025-07-12 15:50 | disposition left against medical advice (07) ==
LOC: EMS 14:54
DX: R42 Dizziness and giddiness (principal); Z53.21 Procedure and treatment not carried out due to patient leaving prior to being seen by health care provider
CPT/HCPCS: 99281; Z7502